=== PATIENT | male | born 1990 | race African-American/Black ===

== ENCOUNTER → 2022-06-24 | Outpatient (CLI) | payer OTHER | LOC: MHCPAIN 12:55 | DX: M47.897 Other spondylosis, lumbosacral region (principal); M54.16 Radiculopathy, lumbar region; M53.3 Sacrococcygeal disorders, not elsewhere classified | CPT/HCPCS: G0463 ==

== ENCOUNTER → 2023-06-29 | Outpatient (CLI) | payer OTHER | LOC: MHCPAIN 08:58 | DX: M47.816 Spondylosis without myelopathy or radiculopathy, lumbar region (principal); M51.36 Other intervertebral disc degeneration, lumbar region | CPT/HCPCS: G0463 ==

== ENCOUNTER → 2023-07-28 | Outpatient (CLI) | payer OTHER | LOC: MHCPAIN 15:28 | DX: M54.16 Radiculopathy, lumbar region (principal); M51.26 Other intervertebral disc displacement, lumbar region | CPT/HCPCS: G0463 ==